=== PATIENT | female | born 1950 | race Caucasian/White ===

== ENCOUNTER → 2024-02-24 10:09 | Outpatient (REF) | payer OTHER, SELFPAY | LOC: RAD 10:09 | PROVIDERS: ATTENDING PHYSICIAN Nurse Practitioner Adult Health; FAMILY PHYSICIAN Family Medicine | DX: C50.811 Malignant neoplasm of overlapping sites of right female breast (principal); A69.20 Lyme disease, unspecified; D75.839 Thrombocytosis, unspecified | CPT/HCPCS: 77080 ==

== ENCOUNTER → 2024-03-07 10:30 | Outpatient (REF) | payer OTHER, SELFPAY | LOC: PET 10:30 | PROVIDERS: ATTENDING PHYSICIAN Nurse Practitioner Adult Health | DX: C50.811 Malignant neoplasm of overlapping sites of right female breast (principal) | CPT/HCPCS: 78815; A9552 ==

== ENCOUNTER → 2024-05-22 06:34 | Day surgery (SDC) | payer OTHER, SELFPAY | LOC: GI 06:34 | PROVIDERS: ATTENDING PHYSICIAN Internal Medicine Gastroenterology | DX: K21.00 Gastro-esophageal reflux disease with esophagitis, without bleeding (principal); K22.2 Esophageal obstruction; K44.9 Diaphragmatic hernia without obstruction or gangrene; K31.89 Other diseases of stomach and duodenum; R93.3 Abnormal findings on diagnostic imaging of other parts of digestive tract; R13.10 Dysphagia, unspecified | CPT/HCPCS: 43239; 88305; 88342 ==

== ENCOUNTER → 2024-06-11 12:23 | Outpatient (REF) | payer OTHER, SELFPAY | LOC: WDC 12:23 | PROVIDERS: ATTENDING PHYSICIAN Internal Medicine Hematology & Oncology; FAMILY PHYSICIAN Family Medicine | DX: Z12.31 Encounter for screening mammogram for malignant neoplasm of breast (principal) | CPT/HCPCS: 77063; 77067 ==

== ENCOUNTER → 2025-05-29 13:57 | Outpatient (REF) | payer OTHER, SELFPAY ==
--- NOTE | 2025-05-29 14:39 | PTCARENOTE ---
port site accessed. site flushed with NSS and assessed by PA. no port study with contrast to be completed as patient has an allergy. there is some leaking of NSS into subcutaneous tissue upon flushing the left chest wall port. Per the provider's
recommendation, she is to have a port removal as she is not currently using her port but only having it flushed at [facility]. [facility] to be contacted regarding IRAD assessment.
== END ==
LOC: RADI 13:57
PROVIDERS: ATTENDING PHYSICIAN Internal Medicine Hematology & Oncology
DX: Z45.2 Encounter for adjustment and management of vascular access device (principal)

== ENCOUNTER → 2025-06-03 13:31 | Outpatient (REF) | payer OTHER, SELFPAY | LOC: RAD 13:31 | PROVIDERS: ATTENDING PHYSICIAN Internal Medicine Hematology & Oncology; FAMILY PHYSICIAN Family Medicine | DX: C50.811 Malignant neoplasm of overlapping sites of right female breast (principal); A69.20 Lyme disease, unspecified; D75.839 Thrombocytosis, unspecified | CPT/HCPCS: 71046 ==

== ENCOUNTER → 2025-06-14 09:30 | Outpatient (REF) | payer OTHER, SELFPAY ==
[2025-06-14 09:49] VITALS: BP 154/91; BP_SYST 89
[2025-06-14] MEDS: ATIVAN 0.5 MG PO (10:11)
[2025-06-14 11:15] VITALS: BP 173/94
== END ==
LOC: RADI 09:30
PROVIDERS: ATTENDING PHYSICIAN Internal Medicine Hematology & Oncology; FAMILY PHYSICIAN Family Medicine
DX: Z45.2 Encounter for adjustment and management of vascular access device (principal); Z85.3 Personal history of malignant neoplasm of breast
CPT/HCPCS: 36590; 77001

== ENCOUNTER → 2025-08-07 13:33 | Outpatient (REF) | payer OTHER, SELFPAY | LOC: WDC 13:33 | PROVIDERS: ATTENDING PHYSICIAN Internal Medicine Hematology & Oncology; FAMILY PHYSICIAN Family Medicine | DX: Z12.31 Encounter for screening mammogram for malignant neoplasm of breast (principal); C50.811 Malignant neoplasm of overlapping sites of right female breast | CPT/HCPCS: 77063; 77067 ==

== ENCOUNTER 2025-08-27 06:22 | Day surgery (SDC) | payer OTHER, SELFPAY | END 2025-08-27 16:12 | disposition home or self-care (01) | LOC: GI 06:22 | PROVIDERS: ATTENDING PHYSICIAN Internal Medicine Gastroenterology; FAMILY PHYSICIAN Family Medicine | DX: Z12.11 Encounter for screening for malignant neoplasm of colon (principal); R19.5 Other fecal abnormalities; K57.30 Diverticulosis of large intestine without perforation or abscess without bleeding; K64.9 Unspecified hemorrhoids; K63.89 Other specified diseases of intestine; D12.4 Benign neoplasm of descending colon; D12.2 Benign neoplasm of ascending colon; D12.3 Benign neoplasm of transverse colon; D12.0 Benign neoplasm of cecum; D12.5 Benign neoplasm of sigmoid colon; K62.1 Rectal polyp | CPT/HCPCS: 45385; 45380; 88305 ==